=== PATIENT | female | born 1990 | race Caucasian/White ===

== ENCOUNTER 2021-04-02 14:31 | Inpatient (IN) | payer MEDICAID, SELFPAY ==
[2021-04-02 14:32] VITALS: BP 108/75; PULSE 74; RESP 16; TEMP 36.7; O2SAT 97; BMI 28.5
--- NOTE | 2021-04-02 15:46 | EDS_ITS ---
HPI History of Present Illness Chief Complaint: Substance Abuse Informant: patient Onset/Context/Timing Current Severity: Mild Maximum Severity: Moderate Narrative Narrative: Patient presents requesting detox from heroin. She has been using for the last year, but states she was clean for 4 months this summer. She uses the drug by snorting. Last use was 8 AM this morning. Patient states that she has body aches, sweats, and anxiety. PFSH PFSH Medical History no medical history no medical history Allergy/AdvReac Type Severity Reaction Status Date / Time tramadol Allergy Hives Verified 04/02/21 14:35 Social History (Updated 04/02/21 @ 15:[address] Cayla Juárez MD) Smoking Status: Current every day smoker tobacco type: cigarettes substance use type: heroin ROS ROS ED Constitutional Constitutional ED: Reports sweats; Denies chills or fever(s) Eyes Eyes: Denies change in vision ENT ENT ED: Denies sore throat Cardiovascular Cardiovascular: Denies chest pain Respiratory/Chest Respiratory/Chest: Denies cough or dyspnea Gastrointestinal Gastrointestinal: Reports nausea; Denies abdominal pain, diarrhea or vomiting Genitourinary Genitourinary ED: Denies dysuria Musculoskeletal Musculoskeletal: Reports myalgias; Denies back pain Integumentary Denies rash Neurologic Neurologic: Denies headache(s) or weakness Psychiatric Psychiatric: Reports anxiety; Denies depression Allergic/Immunologic Allergic/Immunologic ED: Denies urticaria EXAM Physical Exam Const Vital Signs: 04/02/21 14:32 Temperature 98.1 F Temperature Source Temporal Pulse Rate 74 Respiratory Rate 16 Blood Pressure 108/75 Blood Pressure Mean 86 Pulse Ox 97 Oxygen Delivery Method Room Air Positive well nourished and well developed General Appearance ED: well developed HEENT Reports normocephalic and head/scalp atraumatic Eyes PERRL and EOMs intact bilaterally Neck supple Chest Wall inspection of chest normal and palpation of chest normal Resp normal respiratory effort and clear to auscultation bilaterally Cardio regular rate and regular rhythm GI normal to inspection, nondistended, normoactive bowel sounds Palpation: soft Extremity normal to inspection Neuro oriented x3 and no sensory deficits noted Sensorium / Orientation: alert Motor Exam: strength 5/5 throughout Psych mental status grossly normal Skin no rashes or lesions noted Lesions: no lesions Rashes: no rashes MDM MDM MDM Narrative Medical decision making narrative: ED addiction medicine labs ordered. Patient reviewed the treatment agreement for the detox program and has signed this document. Lab Data Attestation: I reviewed the patient's lab results. Labs: Laboratory Results - last 24 hr 04/02/21 04/02/21 04/02/21 15:53 15:55 15:55 WBC 15.1 H RBC 4.31 Hgb 13.3 Hct 39.6 MCV 91.9 MCH 30.9 MCHC 33.6 RDW Std Deviation 39.3 RDW Coeff of Stew 11.5 L Plt Count 281 MPV 10.7 Immature Gran % (Auto) 0.300 Neut % (Auto) 65.6 Lymph % (Auto) 27.3 [place] % (Auto) 5.0 Eos % (Auto) 1.5 Baso % (Auto) 0.3 Absolute Neuts (auto) 9.9 H Absolute Lymphs (auto) 4.12 Nucleated RBC % 0 Sodium 140 Potassium 3.4 L Chloride 107 Carbon Dioxide 25.0 Anion Gap 8 BUN 10 Creatinine 0.99 Estim Creat Clear Calc 69.36 Est GFR (MDRD) Af Amer 84 Est GFR (MDRD) Non-Af 70 BUN/Creatinine Ratio 10.1 Glucose 110 H Calcium 9.1 Total Bilirubin 1.10 H AST 14 L ALT 17 Alkaline Phosphatase 84 Total Protein 7.7 Albumin 3.9 Globulin 3.8 Albumin/Globulin Ratio 1.0 Serum , Qual Urine Opiates Screen POSITIVE H Urine Methadone Screen NEGATIVE Ur Barbiturates Screen NEGATIVE Ur Phencyclidine Scrn NEGATIVE Ur Amphetamines Screen NEGATIVE U Methamphetamin-MDMA POSITIVE H U Benzodiazepines Scrn NEGATIVE Urine Cocaine Screen NEGATIVE U Cannabinoids Screen POSITIVE H Ur Drug Screen Comment Ethyl Alcohol 04/02/21 04/02/21 15:55 15:55 WBC RBC Hgb Hct MCV MCH MCHC RDW Std Deviation RDW Coeff of Stew Plt Count MPV Immature Gran % (Auto) Neut % (Auto) Lymph % (Auto) [place] % (Auto) Eos % (Auto) Baso % (Auto) Absolute Neuts (auto) Absolute Lymphs (auto) Nucleated RBC % Sodium Potassium Chloride Carbon Dioxide Anion Gap BUN Creatinine Estim Creat Clear Calc Est GFR (MDRD) Af Amer Est GFR (MDRD) Non-Af BUN/Creatinine Ratio Glucose Calcium Total Bilirubin AST ALT Alkaline Phosphatase Total Protein Albumin Globulin Albumin/Globulin Ratio Serum , Qual NEGATIVE Urine Opiates Screen Urine Methadone Screen Ur Barbiturates Screen Ur Phencyclidine Scrn Ur Amphetamines Screen U Methamphetamin-MDMA U Benzodiazepines Scrn Urine Cocaine Screen U Cannabinoids Screen Ur Drug Screen Comment Ethyl Alcohol < 3.0 Treatment and Re-Evaluation Comments:: On repeat evaluation patient resting comfortably. She is wanting to smoke a cigarette. We advised we will get her a nicotine patch. Test results reviewed with her including her tox screen. Tox screen is positive for opiates, methamphetamine, and cannabinoids. She admits to buying some CBD oil at a local store, but did not know that she had been exposed to any methamphetamine. I will speak with the hospitalist regarding admission. Discharge Plan Triage Chief Complaint: Substance Abuse ED Provider: Cayla Juárez Dx/Rx/DC Orders Clinical Impression: Desire for detoxification Primary Care Provider: Care Physician,No Primary Referrals: Care Physician,No Primary [Primary Care Provider] - Disposition Disposition: Acute Care [facility]
[2021-04-02 16:05] LABS: Absolute Lymphocyte Count 4.12 X10^3/uL (0.83-4.51); Absolute Neutrophil Count 9.9 X10^3/uL (2.0-7.7); Basophil# 0.05 X10^3/uL; Basophil% 0.3 % (0-1); Eosinophil# 0.22 X10^3/uL; Eosinophils% 1.5 % (0-5); Hematocrit 39.6 % (37-47); Hemoglobin 13.3 g/dL (12.0-15.0); Lymphocyte # 4.12 X10^3/ul (0.83-4.51); Lymphocyte % 27.3 % (19-41); Mean Corp Hgb Conc 33.6 g/dL (32-36); Mean Corpuscular Hgb 30.9 pg (27.0-32.0); Mean Corpuscular Volume 91.9 fL (81-99); Mean Platelet Vol. 10.7 fl (6.2-12.0); Monocyte# 0.75 X10^3/uL; NRBC Flagged by Analyzer 0 % (0-5); Neutrophil # 9.91 X10^3/uL (2.7-7.7); Neutrophil % 65.6 % (47-70); Platelet Count 281 K/mm3 (150-450); RBC Distribution Width CV 11.5 % (11.6-14.6); RBC Distribution Width SD 39.3 fl (35.1-43.9); Red Blood Count 4.31 M/mm3 (4.2-5.4); White Blood Count 15.1 K/mm3 (4.4-11.0)
[2021-04-02 16:19] LABS: Internal QC Validated? YES +Cl - CLEAR BKGD; Pregnancy, Serum, hCG Quali. NEGATIVE Negative
[2021-04-02 16:23] LABS: Amphetamine Urine VISTA NEGATIVE (<1000 ng/mL); Barbiturate Urine VISTA NEGATIVE (< 200 ng/mL); Benzodiazepine Urine VISTA NEGATIVE (< 200 ng/mL); Cocaine Urine VISTA NEGATIVE (< 300 ng/mL); Ecstacy Urine VISTA POSITIVE (< 500 ng/mL); Methadone Urine VISTA NEGATIVE (< 300 ng/mL); PCP Urine VISTA NEGATIVE (< 25 ng/mL); THC Urine VISTA POSITIVE (< 50 ng/mL); Vista UDS pH Range 5
[2021-04-02 16:24] LABS: AST(SGOT) 14 U/L (15-37); Alanine Aminotransfer ALT/SGPT 17 U/L (13-56); Albumin, Serum 3.9 g/dL (3.2-5.0); Alkaline Phosphatase 84 U/L (45-117); Anion Gap 8 (5-15); BUN 10 mg/dL (7-18); BUN/Creat Ratio 10.1 RATIO (10-20); Calcium,Total 9.1 mg/dL (8.5-10.1); Chloride 107 mmol/L (98-107); Creatinine, Serum 0.99 mg/dL (0.55-1.02); EST Glomerular Filtration Rate 70 mL/min (>60); Est Glom Filt Rate - Afr Amer 84 mL/min (>60); Estimated Creatinine Clearance 69.36 ml/min; Globulin 3.8 g/dL (2.2-4.2); Glucose 110 mg/dL (74-106); Potassium 3.4 mmol/L (3.5-5.1); Protein, Total 7.7 g/dL (6.4-8.2); Sodium Level 140 mmol/L (136-145)
[2021-04-02 16:39] LABS: Alcohol, Blood (Medical)-Serum < 3.0 mg/dL
[2021-04-02 17:00] VITALS: RESP 16
[2021-04-02 17:09] VITALS: BP 108/75; PULSE 66; RESP 18; TEMP 36.8; O2SAT 97
--- NOTE | 2021-04-02 17:15 | CM.ED ---
SOCIAL WORK Referral Source: Self-referral Reason for Consult: Substance Abuse-requesting detox Met with patient in room. Introduced role and reason for referral. Patient reports lives with twila in [place]. Patient anxious when discussing detox with this worker. Patient reports, I thought we were just using heroin, I didn't know there was other stuff in it. Patient states has been using for about a year with times of sobriety. Patient reports has been actively using heroin for about a month. Triage note reports last use was 8am this morning, patient reporting last use was yesterday sometime. Patient wishes to complete detox and is hoping to get my kids back. Encouragement and emotional support provided. Patient states twila is an addict and is active with outpatient services. Call to Treatment Navigator, left message updating on [facility] admit and this worker's call back information. Plan: Admit to [facility] Criselda Oates, SIDE DOOR MAN, ACQUISITION EDITOR
--- NOTE | 2021-04-02 17:19 | HP.PCM_ITS ---
Documented by User: JEFF LozanoC 04/02/21 17:34 HPI - General General Date of Admission: 04/02/21 Date of Service: 04/02/21 Chief Complaint: Substance abuse HPI Narrative CASSANDRA COWAN, is a 30 F who presents with desire to detox from heroin. Patient is very freaked out at the realization that the heroin that she has been doing has been mixed with methamphetamines. Patient states that she is o nly ever done heroin and has never done methamphetamines in her life to her knowledge. Patient states that she has done opioid pills in the past however this is the extent of her drug use. Patient states that her boyfriend also uses drugs and he is currently trying to quit on his own so that he can work while she is in the hospital. Patient denies any medical history. Patient reports concurrent tobacco abuse [facility] Medical History (Updated 04/02/21 @ 18:34 by Jenn Clarke) Anxiety Bipolar disorder Depression Migraines Ovarian cyst Smoker Substance abuse Vaginal delivery Medical History no medical history no medical history Home Medications buprenorphine-naloxone 8 film SUBLINGUAL BID 04/02/21 [History Last Taken 03/03/21] buspirone [BuSpar] 5 mg PO BID 04/02/21 [History Last Taken 03/03/21] gabapentin 800 mg PO TID 04/02/21 [History Last Taken 03/03/21] Allergy/AdvReac Type Severity Reaction Status Date / Time tramadol Allergy Hives Verified 04/02/21 14:35 Surgical History no surgical history no surgical history Social History (Updated 04/02/21 @ 15:[address] Cayla Juárez MD) Smoking Status: Current every day smoker tobacco type: cigarettes substance use type: heroin ROS Constitutional Constitutional: Denies anorexia, chills, fatigue, fever(s), malaise or weakness Cardiovascular Cardiovascular: Denies chest pain, edema, palpitations or syncope Respiratory/Chest Respiratory/Chest: Denies cough, shortness of breath at rest, shortness of breath with exertion or wheezing Gastrointestinal Gastrointestinal: Reports diarrhea and nausea; Denies abdominal pain, constipation or vomiting Genitourinary Genitourinary: Denies dysuria Musculoskeletal Musculoskeletal: Denies back pain, extremity pain, joint pain, joint stiffness or joint swelling Integumentary Integumentary: Denies dry skin Neurologic Neurologic: Denies abnormal gait, abnormal speech, confusion, dizziness or focal weakness Psychiatric Psychiatric: Denies anxiety or depression Endocrine Endocrinology: Denies change in body appearance Hematologic/Lymphatic Hematologic/Lymphatic: Denies anemia Vital Signs Vital Signs Vital Signs: 04/02/21 14:32 04/02/21 17:00 04/02/21 17:09 Temperature 98.1 F 98.3 F Temperature Source Temporal Oral Pulse Rate 74 66 Respiratory Rate 16 16 18 Blood Pressure 108/75 108/75 Blood Pressure Mean 86 86 Pulse Ox 97 97 Oxygen Delivery Method Room Air Room Air Weight Weight: 161 lb Body Mass Index (BMI) 28.5 Physical Exam Const alert and oriented x3 General Appearance: cooperative HEENT normocephalic and head/scalp atraumatic Eyes conjunctivae normal and no scleral icterus Neck supple and no JVD General: trachea midline Resp normal respiratory effort, normal air movement and clear to auscultation bilaterally Cardio regular rate, regular rhythm, S1 normal heart sound, S2 normal heart sound and peripheral pulses 2+ throughout GI normal to inspection, nondistended, normoactive bowel sounds, soft to palpation and non-tender Extremity normal capillary refill and no clubbing, cyanosis or edema General Extremity: no tenderness to palpation of joints or extremities Skin General Skin Exam: no breakdown and turgor normal Lesions: no lesions Rashes: no rashes Neuro oriented x3, moves all extremities, no focal motor deficits, no sensory deficits noted and gait normal Psych cooperative Speech: excessive and rapid Thought Process: flight of ideas and racing thoughts Results Lab / Micro Data Result Diagrams: 04/02/21 15:55 04/02/21 15:55 Labs: Laboratory Results - last 24 hr 04/02/21 15:53: Urine Opiates Screen POSITIVE H, Urine Methadone Screen NEGATIVE, Ur Barbiturates Screen NEGATIVE, Ur Phencyclidine Scrn NEGATIVE, Ur Amphetamines Screen NEGATIVE, U Methamphetamin-MDMA POSITIVE H, U Benzodiazepines Scrn NEGATIVE, Urine Cocaine Screen NEGATIVE, U Cannabinoids Screen POSITIVE H, Ur Drug Screen Comment 04/02/21 15:55: WBC 15.1 H, RBC 4.31, Hgb 13.3, Hct 39.6, MCV 91.9, MCH 30.9, MCHC 33.6, RDW Std Deviation 39.3, RDW Coeff of Stew 11.5 L, Plt Count 281, MPV 10.7, Immature Gran % (Auto) 0.300, Neut % (Auto) 65.6, Lymph % (Auto) 27.3, [place] % (Auto) 5.0, Eos % (Auto) 1.5, Baso % (Auto) 0.3, Absolute Neuts (auto) 9.9 H, Absolute Lymphs (auto) 4.12, Nucleated RBC % 0 04/02/21 15:55: Sodium 140, Potassium 3.4 L, Chloride 107, Carbon Dioxide 25.0, Anion Gap 8, BUN 10, Creatinine 0.99, Estim Creat Clear Calc 69.36, Est GFR (MDRD) Af Amer 84, Est GFR (MDRD) Non-Af 70, BUN/Creatinine Ratio 10.1, Glucose 110 H, Calcium 9.1, Total Bilirubin 1.10 H, AST 14 L, ALT 17, Alkaline Phosphatase 84, Total Protein 7.7, Albumin 3.9, Globulin 3.8, Albumin/Globulin Ratio 1.0 04/02/21 15:55: Ethyl Alcohol < 3.0 04/02/21 15:55: Serum , Qual NEGATIVE Assessment & Plan Assessment/Plan (1) Desire for detoxification: PLAN: 1. Desire for detoxification -Admit to [facility] as part of the ramp program -Buprenorphine taper ordered along with supportive medications per protocol -Case management consulted for coordination with 180 -Vital signs per protocol 2. Tobacco abuse -nicotine patch order daily -Inpatient smoking cessation DVT prophylaxis-not indicated, encourage ambulation This patient was seen by LLOYD Lozano under the supervision of Dr. Jimenez Documented by User: Dr. Dc Jimenez DO 04/02/21 20:01 HPI - General General Date of Admission: 04/02/21 [facility] Medical History (Updated 04/02/21 @ 18:34 by eJnn Clarke) Anxiety Bipolar disorder Depression Migraines Ovarian cyst Smoker Substance abuse Vaginal delivery Medical History no medical history Home Medications buprenorphine-naloxone 8 film SUBLINGUAL BID 04/02/21 [History Last Taken 03/03/21] buspirone [BuSpar] 5 mg PO BID 04/02/21 [History Last Taken 03/03/21] gabapentin 800 mg PO TID 04/02/21 [History Last Taken 03/03/21] Allergy/AdvReac Type Severity Reaction Status Date / Time tramadol Allergy Hives Verified 04/02/21 14:35 Surgical History no surgical history Social History (Updated 04/02/21 @ 15:[address] Cayla Juárez MD) Smoking Status: Current every day smoker tobacco type: cigarettes substance use type: heroin Results Lab / Micro Data Result Diagrams: 04/02/21 15:55 04/02/21 15:55 Charges/Coding Addendum Addendum: Patient was seen and examined today independently of Vonnie De, patient came to the ER today at [facility] requesting services for detox from heroin which she snorts. Patient denies using methamphetamines although her tox screen was positive for them-I believe that her heroin was laced with methamphetamine. Patient is anxious at the time my exam tonight, nursing will start her on Subutex tonight. On examination she appeared anxious and crying at the time my exam. Vital signs as documented. Skin warm and dry and without overt rashes. Neck without JVD, thyroid appears normal, trachea is midline, neck is supple. Lungs clear, normal air movement was noted. Heart exam notable for regular rhythm, normal sounds and absence of murmurs, rubs or gallops. Abdomen unremarkable and without evidence of organomegaly, masses, or abdominal aortic enlargement, bowel sounds are present in all 4 quadrants, no abdominal tenderness was noted. Extremities nonedematous, no cyanosis was noted, no clubbing was noted. Neuro: Cranial nerves II through XII are grossly intact, no focal motor deficits were noted, sensation to light touch and pinprick is intact, motor exam 5/5 throughout. Psych: Patient is alert and oriented x3, she appears anxious, she does not appear depressed I have reviewed Vonnie De's history and physical including her medical assessment and plan of care and endorse it. Visit Charges Inpatient E&M: 48717 Init Hosp L3
[2021-04-02 18:23] VITALS: BMI 28.8
[2021-04-02 18:30] VITALS: BP 112/69; PULSE 50; RESP 16; TEMP 36.8; O2SAT 100
[2021-04-02] MEDS: Gabapentin 300 MG Capsule PO (18:51)
[2021-04-02] MEDS: hydrOXYzine PAM 25 MG Capsule 50 MG PO (20:01)
[2021-04-02] MEDS: cloNIDine HCl 0.1 MG Tablet PO (20:01)
[2021-04-02] MEDS: Buprenorphine HCl 2 MG TAB.SUBL SL (20:49)
[2021-04-02 21:00] VITALS: BP 108/69; PULSE 60; RESP 16; TEMP 37.1; O2SAT 100
[2021-04-02] MEDS: Nicotine Polacrilex 2 MG GUM PO (21:21)
[2021-04-03 03:00] VITALS: BP 98/56; PULSE 68; RESP 16; TEMP 36.8; O2SAT 99
[2021-04-03] MEDS: Buprenorphine HCl 2 MG TAB.SUBL SL ×3 (05:29→21:02)
[2021-04-03] MEDS: Dicyclomine 10 MG Capsule 20 MG PO ×3 (05:30→21:09)
[2021-04-03] MEDS: Ondansetron 8 MG Tablet PO (07:55)
[2021-04-03 07:59] VITALS: BP 106/59; PULSE 62; RESP 12; TEMP 36.6; O2SAT 99
[2021-04-03] MEDS: Ibuprofen 600 MG Tablet PO (08:03)
[2021-04-03] MEDS: Methocarbamol 750 MG Tablet 1500 MG PO ×3 (08:04→21:10)
[2021-04-03] MEDS: cloNIDine HCl 0.1 MG Tablet PO ×2 (08:04→18:01)
[2021-04-03] MEDS: Gabapentin 300 MG Capsule PO ×2 (09:38→18:01)
[2021-04-03] MEDS: hydrOXYzine PAM 25 MG Capsule 50 MG PO ×2 (12:18→18:01)
[2021-04-03 12:20] VITALS: BP 100/61; PULSE 66; RESP 14; TEMP 37.2; O2SAT 99
--- NOTE | 2021-04-03 12:59 | CASEMGMT ---
SW Note Referral Source: SW Referral Reason: Self Pay SW met with patient and introduced self. SW provided patient with self pay packet. Patient voiced no other issues or concerns. SW remains available. SW will update in daily report. Alyssa LEE
[2021-04-03 17:56] VITALS: BP 117/74; PULSE 74; RESP 16; TEMP 36.8; O2SAT 99
[2021-04-03] MEDS: Nicotine Polacrilex 2 MG GUM PO (17:57)
--- NOTE | 2021-04-03 19:15 | PCM.PN.HOSP ---
Subjective Subjective Patient was seen and examined today, it [birth year] birthday and she cannot talk to family members by phone today which upset her. I had a discussion with the patient today on whether she had a history of a psychiatric illness-patient stated that she was given a diagnosis of bipolar disorder in the past but is not on any medicine for it. Patient states she used to be on medication for this but she cannot tell me the medication that she was on. Objective Data Objective Data Vital Signs: Vital Signs Temp Pulse Resp BP Pulse Ox 98.3 F 74 16 117/74 99 04/03/21 17:56 04/03/21 17:56 04/03/21 17:56 04/03/21 17:56 04/03/21 17:56 Oxygen Delivery Method Room Air Weight: 73.799 kg Body Mass Index (BMI) 28.8 Intake & Output: Intake and Output for Last 24 Hours 04/01/21 04/02/21 04/03/21 23:59 23:59 23:59 Intake Total 1949 Balance 1949 Lab / Micro Data Result Diagrams: 04/02/21 15:55 04/02/21 15:55 Physical Exam Const alert and oriented x3 Constitutional Narrative: Patient appears anxious and upset at times, crying General Appearance: cooperative, well kempt and well developed Orientation / Consciousness: awake, oriented to person, oriented to place and oriented to time HEENT normocephalic, head/scalp atraumatic and moist oral mucous membranes Head and Scalp: normocephalic Eyes PERRL, EOMs intact bilaterally and conjunctivae normal Neck nuchal rigidity, supple, no JVD, thyroid normal and no carotid bruits General: trachea midline Resp normal respiratory effort, no retractions, no use of accessory muscles and clear to auscultation bilaterally Auscultation: Negative for rales, rhonchi or wheezes Cardio regular rate, regular rhythm, S1 normal heart sound, S2 normal heart sound, no murmurs, no rub and no gallops GI normal to inspection, nondistended, normoactive bowel sounds, soft to palpation, non-tender and non-distended Extremity no clubbing, cyanosis or edema Skin no rashes or lesions noted General Skin Exam: no breakdown Neuro oriented x3, CN's II-XII intact bilaterally, no focal motor deficits and no sensory deficits noted Sensorium / Orientation: awake and alert Speech: speech normal Psych thought process normal Psych Narrative: Patient appears nervous and upset, at times she is crying Assessment & Plan Assessment/Plan (1) Desire for detoxification: PLAN: 1. Acute opiate withdrawal from heroin-continue present medications #2 bipolar disorder-I have decided to start the patient on Depakote 500 mg twice daily #3 chronic anxiety Charges/Coding Visit Charges Inpatient E&M: 59507 Subs Hosp L2
[2021-04-03] MEDS: traZODone 100 MG Tablet PO (21:09)
[2021-04-04] VITALS: BP 101/57; PULSE 66; RESP 16; TEMP 36.6; O2SAT 98
[2021-04-04] MEDS: hydrOXYzine PAM 25 MG Capsule 50 MG PO ×2 (00:08→10:58)
--- NOTE | 2021-04-04 00:45 | PCS.PANDOC ---
PANDEMIC DOCUMENTATION INITIATED: Date: 01/18/2021 Time: 190
[2021-04-04] MEDS: Gabapentin 300 MG Capsule PO ×2 (04:19→12:35)
[2021-04-04] MEDS: Ondansetron 8 MG Tablet PO (04:19)
[2021-04-04] MEDS: Buprenorphine HCl 2 MG TAB.SUBL SL ×3 (04:19→20:38)
[2021-04-04 06:00] VITALS: BP 92/58; PULSE 59; RESP 16; TEMP 37; O2SAT 99
[2021-04-04] MEDS: Divalproex Sodium 250 MG Tablet 500 MG PO ×2 (07:37→17:57)
[2021-04-04 07:41] VITALS: BP 95/53; PULSE 58; RESP 18; TEMP 36.8; O2SAT 98
[2021-04-04] MEDS: Nicotine Polacrilex 2 MG GUM PO ×3 (10:51→17:57)
[2021-04-04] MEDS: Methocarbamol 750 MG Tablet 1500 MG PO (10:58)
[2021-04-04] MEDS: busPIRone 15 MG TABLET PO ×2 (14:29→22:56)
[2021-04-04 14:31] VITALS: BP 98/59; PULSE 65; RESP 18; TEMP 36.9; O2SAT 98
--- NOTE | 2021-04-04 14:42 | PN.HOSP_ITS ---
Subjective Subjective Patient was seen and examined today, she was meeting with the gas systems worker. Patient continues to have periods of anxiety and nervousness. I started the patient on BuSpar today Objective Data Objective Data Vital Signs: Vital Signs Temp Pulse Resp BP Pulse Ox 98.5 F 65 18 98/59 L 98 04/04/21 14:31 04/04/21 14:31 04/04/21 14:31 04/04/21 14:31 04/04/21 14:31 Oxygen Delivery Method Room Air Weight: 73.799 kg Body Mass Index (BMI) 28.8 Intake & Output: Intake and Output for Last 24 Hours 04/02/21 04/03/21 04/04/21 23:59 23:59 23:59 Intake Total 1949 Balance 1949 Lab / Micro Data Result Diagrams: 04/02/21 15:55 04/02/21 15:55 Physical Exam Const alert, oriented x3, no apparent distress and healthy appearing General Appearance: cooperative, well kempt and well developed Orientation / Consciousness: awake, oriented to person, oriented to place and o riented to time HEENT normocephalic, head/scalp atraumatic and moist oral mucous membranes Head and Scalp: normocephalic Eyes PERRL, EOMs intact bilaterally and conjunctivae normal Neck nuchal rigidity, supple, no JVD, thyroid normal and no carotid bruits General: trachea midline Resp normal respiratory effort, no retractions, no use of accessory muscles and clear to auscultation bilaterally Auscultation: Negative for rales, rhonchi or wheezes Cardio regular rate, regular rhythm, S1 normal heart sound, S2 normal heart sound, no murmurs, no rub and no gallops GI normal to inspection, nondistended, normoactive bowel sounds, soft to palpation, non-tender and non-distended Extremity no clubbing, cyanosis or edema Skin no rashes or lesions noted General Skin Exam: no breakdown Neuro oriented x3, CN's II-XII intact bilaterally, no focal motor deficits and no sensory deficits noted Sensorium / Orientation: awake and alert Speech: speech normal Psych thought process normal Psych Narrative: Patient does not appear nervous or anxious at the time of my examination today Assessment & Plan Assessment/Plan (1) Desire for detoxification: PLAN: 1. Acute opiate withdrawal from heroin-continue present medications, she met with addiction social science analyst today. #2 bipolar disorder-continue Depakote 500 mg twice daily #3 chronic anxiety-I decided to place the patient on BuSpar 15 mg 3 times a day Charges/Coding Visit Charges Inpatient E&M: 14499 Subs Hosp L2
[2021-04-04 22:00] VITALS: BP 103/67; PULSE 74; RESP 16; TEMP 37.5; O2SAT 100
[2021-04-04] MEDS: traZODone 100 MG Tablet PO (22:57)
[2021-04-05 03:58] LABS: Mucous, Urine 0 SEEN /hpf (<or=2+); Red Blood Cells-Urine 0 SEEN /hpf (0-5); White Blood Cells 0 SEEN /hpf (0-5)
[2021-04-05 04:01] LABS: Color, Urine Yellow (Yellow); Glucose, Dipstick Normal (Normal); Ketone-Dipstick Negative (Negative); Leukocyte Esterase-Dipstick Negative /ul (Negative); Nitrite-Dipstick Negative (Negative); Occult Blood-Urine Negative /ul (Negative); Protein-Dipstick Negative (Negative); Specific Gravity, Urine 1.005 (1.002-1.030); Urine Bilirubin Dipstick Negative (Negative); Urine Clarity Clear (Clear); Urine Urobilinogen Normal (Normal); Urine pH 6.5 (5.0 - 8.0)
[2021-04-05 04:30] VITALS: BP 93/57; PULSE 66; RESP 16; TEMP 37.1; O2SAT 100
--- NOTE | 2021-04-05 05:03 | EKG12_ITS ---
Test Reason : IRREG HR Blood Pressure : / mmHG Vent. Rate : 052 BPM Atrial Rate : 052 BPM P-R Int : 214 ms QRS Dur : 102 ms QT Int : 462 ms P-R-T Axes : 066 061 056 degrees QTc Int : 429 ms Sinus bradycardia with sinus arrhythmia with 1st degree A-V block Otherwise normal ECG No previous ECGs available Confirmed by RUDDY PATEL, SINGH ([id number]), mapping editor IBRAHIMA PUENTE ([id number]) on 04/06/2021 12:29:23 P M Referred By: DR SCHWAB Confirmed By:LUCAS FOX MD
[2021-04-05] MEDS: busPIRone 15 MG TABLET PO (05:06)
[2021-04-05 06:45] LABS: Bacteria 1+ /hpf (None Seen); Squamous Epithelial Cells - UA 0-5 SEEN /hpf (5-10)
[2021-04-05 08:00] VITALS: BP 100/45; PULSE 99; RESP 14; TEMP 36.6; O2SAT 98
[2021-04-05] MEDS: Divalproex Sodium 250 MG Tablet 500 MG PO (08:06)
[2021-04-05] MEDS: Buprenorphine HCl 2 MG TAB.SUBL SL (08:09)
[2021-04-05] MEDS: hydrOXYzine PAM 25 MG Capsule 50 MG PO (09:38)
[2021-04-05] MEDS: Nicotine Polacrilex 2 MG GUM PO (09:39)
--- NOTE | 2021-04-05 09:49 | PCM.DC ---
Discharge Instructions Diet Discharge Diet: No restrictions Activity Discharge Activity: Return to Normal Activity Weight Bearing Status: Weight bearing as tolerated Dressing / Incision Call your doctor if you observe: Fever of 101 or Higher, Coldness, Increased Pain, Numbness or Tingling, Change in Color, Inability to urinate, Inability to have a bowel movement, Using more than 1 pad per hour, Shortness of breath, Dizziness, Fainting spells, Swelling in the ankles, Chest pain, Prolonged hiccupping, Increased palpitations (irregular heartbeat), Calf discomfort and Uncontrolled pain Follow Up Care Test Results: Test results from this visit will be discussed in further detail at your follow-up appointment, if applicable. Discharge Plan Admission Admit Date/Time: 04/02/21 17:09 Primary Reason for Your Visit: Acute opiate withdrawal syndrome Attending Provider: Matias Whalen Primary Care Provider: Ciara Araujo Primary Instructions Additional Instructions / Restrictions: She is being discharged today to residential [facility] Discharge Orders/Prescriptions Prescriptions: Continued buspirone 5 mg Tablet 5 mg PO BID RF: 0 gabapentin 800 mg tablet 800 mg PO TID RF: 0 buprenorphine-naloxone 8-2 mg film 8 film sublingual BID RF: 0 Referrals / Follow Up: Care Physician,No Primary [Primary Care Provider] - Within 1 Week Disposition Disposition (needs filled in before D/C Order can be placed): Home, Self Care
--- NOTE | 2021-04-05 09:52 | PCM.DC.SUM ---
Providers Date of Admission: 04/02/21 Primary Care Physician: No Primary Care Phys Reason For Visit: DETOX Diagnosis Discharge Diagnosis (1) Desire for detoxification: Status: Acute Medications at Discharge Home Medications buprenorphine-naloxone 8 film SUBLINGUAL BID 04/02/21 buspirone 5 mg PO BID 04/02/21 gabapentin 800 mg PO TID 04/02/21 Hospital Course Summary of Care Provided Hospital Course: This 31-year-old female is admitted with heroin/opioid acute withdrawal syndrome. Patient states she snorts heroin. After talking to 180 adult protective caseworker, I came to know that she has history of suicidal attempt in the past with history of bipolar disease. She was on buprenorphine along with other adjunctive medication as per protocol. She is also on high dose of BuSpar 15 mg 3 times daily. Patient is discharged to inpatient [facility] facility for further management. Physical Exam Narrative General: Alert, Oriented x3, Cooperative HEENT: Atraumatic, PERRLA, EOMI, Normocephalic Oral: No Gingival or Mucosal Lesions/ Ulcerations Neck: Supple, No JVD, Negative Carotid Bruits Lungs: Air entry equal in bilateral lung bases. No crepitation/rhonchi Cardiovascular: Regular rate, Regular Rhythm, Normal S1, Normal S2, No murmurs Abdomen: Bowel Sounds Present, Soft, Non Tender, Non-Distended : No renal angle tenderness. No suprapubic tenderness. Extremities: No edema, Capillary Refill Less than 3 Seconds Skin: No rashes, No breakdown Musculoskeletal: No Tenderness to Palpation of Joints or Extremities Neurological: Cranial nerves II-XII grossly intact, DTR 2+/4 and Symmetrical, Neuro grossly intact Psych/Mental Status: Normal Affect, Appropriate. Weight / BMI Weight Weight: 162 lb 11.2 oz Body Mass Index (BMI) 28.8 ABG / Lab / Microbiology Data Result Diagrams: 04/02/21 15:55 04/02/21 15:55 Laboratory: Laboratory Results - last 24 hr 04/05/21 00:37: Urine Color Yellow, Urine Clarity Clear, Urine pH 6.5, Ur Specific [place] 1.005, Urine Protein Negative, Urine Glucose (UA) Normal, Urine Ketones Negative, Urine Occult Blood Negative, Urine Nitrite Negative, Urine Bilirubin Negative, Urine Urobilinogen Normal, Ur Leukocyte Esterase Negative, Urine RBC 0 SEEN, Urine WBC 0 SEEN, Ur Squamous Epith Cells 0-5 SEEN, Urine Bacteria 1+, Urine Mucus 0 SEEN D/C Instructions Discharge Diet: No restrictions Weight Bearing Status: Weight bearing as tolerated Call your doctor if you observe: Fever of 101 or Higher, Coldness, Increased Pain, Numbness or Tingling, Change in Color, Inability to urinate, Inability to have a bowel movement, Using more than 1 pad per hour, Shortness of breath, Dizziness, Fainting spells, Swelling in the ankles, Chest pain, Prolonged hiccupping, Increased palpitations (irregular heartbeat), Calf discomfort and Uncontrolled pain Meaningful Use Info Meaningful Use Diagnoses (Choose all that apply): None applicable Discharge Plan Admission Admit Date/Time: 04/02/21 17:09 Primary Reason for Your Visit: Acute opiate withdrawal syndrome Attending Provider: Matias Whalen Primary Care Provider: Chiquita Roach,Ciara Primary Instructions Additional Instructions / Restrictions: She is being discharged today to residential [facility] Discharge Orders/Prescriptions Prescriptions: Continued buspirone 5 mg Tablet 5 mg PO BID RF: 0 gabapentin 800 mg tablet 800 mg PO TID RF: 0 buprenorphine-naloxone 8-2 mg film 8 film sublingual BID RF: 0 Referrals / Follow Up: Care Physician,No Primary [Primary Care Provider] - Within 1 Week Disposition Disposition (needs filled in before D/C Order can be placed): Home, Self Care Charges/Coding Visit Charges Inpatient E&M: 82168 Disch Hosp
--- NOTE | 2021-04-05 10:49 | PHA.DC.MR ---
Pharmacy Service has performed discharge medication reconciliation for this patient. The patient's discharge medication list was reviewed for discrepancies and discrepancies were resolved. Home Medications buprenorphine-naloxone 8 film SUBLINGUAL BID 04/02/21 buspirone 5 mg PO BID 04/02/21 gabapentin 800 mg PO TID 04/02/21
== END 2021-04-05 11:19 | disposition home or self-care (01) | DRG 897 ==
LOC: ED 16:47 → MS3 17:13
PROVIDERS: Hospitalist; Admitting Provider Internal Medicine; Emergency Provider Emergency Medicine; Visit Provider Internal Medicine
DX: F11.93 Opioid use, unspecified with withdrawal (principal); F12.90 Cannabis use, unspecified, uncomplicated; F15.90 Other stimulant use, unspecified, uncomplicated; F31.9 Bipolar disorder, unspecified; F41.9 Anxiety disorder, unspecified; Z91.51 Personal history of suicidal behavior; F17.210 Nicotine dependence, cigarettes, uncomplicated
CPT/HCPCS: 80053; 80307; 81001; 82077; 84703; 85025; 93005; 99285; 99406; A4216

== ENCOUNTER 2021-10-02 18:41 | Observation (INO) | payer MEDICAID, SELFPAY ==
[2021-10-02 18:41] VITALS: BP 120/76; PULSE 80; RESP 18; TEMP 36; O2SAT 99; BMI 32.2
--- NOTE | 2021-10-02 19:14 | EX.ED.DYSGE1 ---
HPI History of Present Illness Chief Complaint: Substance Abuse Informant: patient Narrative Narrative: 31-year-old female presenting to the emergency room requesting detox from heroin. Patient states that she is a daily snort or of heroin. Between her and her significant other use about a gram per day. She states that they used to make himself feel better physically. She states that she has no pending legal issues and she is not . Initially not wanting to stay if she cannot be with her significant other but once finding out that he is going to stay no matter what she agrees to stay. [facility] Medical History (Updated 10/02/21 @ 19:[address] Markus Riddle DO) Anxiety Bipolar disorder Depression Desire for detoxification Migraines Ovarian cyst Smoker Substance abuse Vaginal delivery Home Medications buprenorphine-naloxone 8 film SUBLINGUAL BID 04/02/21 [History Last Taken 03/03/21] buspirone 5 mg PO BID 04/02/21 [History Last Taken 03/03/21] gabapentin 800 mg PO TID 04/02/21 [History Last Taken 03/03/21] Allergy/AdvReac Type Severity Reaction Status Date / Time tramadol Allergy Hives Verified 04/02/21 14:35 Social History Smoking Status: Current every day smoker tobacco type: cigarettes substance use type: heroin ROS ROS ED Constitutional Constitutional ED: Denies chills, fever(s) or weight loss Eyes Eyes: Denies change in vision or diplopia ENT ENT ED: Denies ear pain, rhinorrhea or sore throat Cardiovascular Cardiovascular: Denies chest pain, orthopnea, palpitations or racing heartbeat Respiratory/Chest Respiratory/Chest: Denies cough, dyspnea or orthopnea Gastrointestinal Gastrointestinal: Denies abdominal pain, diarrhea, nausea or vomiting Genitourinary Genitourinary ED: Denies dysuria, hematuria or urinary frequency Musculoskeletal Musculoskeletal: Denies arthralgias or myalgias Integumentary Denies abscess or rash Neurologic Neurologic: Denies headache(s) or weakness Psychiatric Psychiatric: Denies anxiety, depression, suicidal ideation or suicidal thoughts Endocrine Endocrinology: Denies polydipsia, polyphagia or polyuria Allergic/Immunologic Allergic/Immunologic ED: Denies mouth swelling, tongue swelling or urticaria EXAM Physical Exam Const Vital Signs: 10/02/21 18:41 Temperature 96.8 F L Temperature Source Oral Pulse Rate 80 Respiratory Rate 18 Blood Pressure 120/76 Blood Pressure Mean 90 Pulse Ox 99 Oxygen Delivery Method Room Air Positive well nourished and well developed General Appearance ED: well developed HEENT Reports normocephalic, head/scalp atraumatic, TM's clear and moist mucous membranes Negative for trauma Tympanic Membrane ED: Yes TM's clear Eyes PERRL and EOMs intact bilaterally Neck no lymphadenopathy, supple and no JVD Resp normal respiratory effort and clear to auscultation bilaterally Cardio regular rate, regular rhythm and no murmurs GI normal to inspection, nondistended, normoactive bowel sounds and non-tender Palpation: soft Back/Spine no CVA tenderness and normal ROM Extremity normal to inspection General Extremety ED: Negative for edema General Extremity: Negative for edema Neuro oriented x3 and CN's II-XII intact bilaterally Sensorium / Orientation: alert Motor Exam: strength 5/5 throughout Psych mental status grossly normal Mood & Affect: Negative for depressed or tearful Skin no rashes or lesions noted and no wounds MDM MDM MDM Narrative Medical decision making narrative: Patient will be medically screened. If she is not and agreeable to the rules of the program I will speak with the hospitalist regarding admission Discharge Plan Dx/Rx/DC Orders Clinical Impression: Heroin withdrawal Disposition Disposition: Acute Care [facility]
--- NOTE | 2021-10-02 19:15 | HP.PCM.HOS_ITS ---
HPI - General General Date of Admission: 10/02/21 Date of Service: 10/02/21 Chief Complaint: Acute Opiate Withdrawal HPI Narrative The patient is a 31 y/o F w/ PMHx: Anxiety and Depression/Bipolar disorder, Chronic migraines, Tobacco use, Polysubstance abuse including heroin who presents to the [facility] ED on 10/02/21 with history of significant ongoing issues with substance abuse primarily heroin which she snorts daily, usually using 1 g with her significant other with whom she lives, noting both have attempted to be clean but unfortunately its been unsuccessful several times with last dose 9 AM on day of presentation with complaint of abdominal cramping, mild nausea, body aches, rhinorrhea and restlessness. Patient states she is interested in becoming clean. Initially she was very reticent to stay because it was mentioned that her and her significant would not be able to be on the same floors but following lengthy discussion she was amenable. She reports having 3 living children, 3 miscarriages. From discussions with her she does not have custody of any of her children the youngest aged 2 of note. Work-up in the ED included T96.8, heart rate 80, BP 120/76, respiratory rate 18, 99% on room air, pending CBC, CMP, , UDS and ethyl alcohol levels upon evaluation. [facility] Medical History (Updated 10/02/21 @ 19:[address] Markus Riddle, ) Anxiety Bipolar disorder Depression Desire for detoxification Migraines Ovarian cyst Smoker Substance abuse Vaginal delivery Home Medications buprenorphine-naloxone 8 film SUBLINGUAL BID 04/02/21 [History Last Taken 03/03/21] buspirone 5 mg PO BID 04/02/21 [History Last Taken 03/03/21] gabapentin 800 mg PO TID 04/02/21 [History Last Taken 03/03/21] Allergy/AdvReac Type Severity Reaction Status Date / Time tramadol Allergy Hives Verified 04/02/21 14:35 Family History (Updated 10/02/21 @ 19:[address] Marita Jordan MD) Mother Heart disease Diabetes Father Cancer Lung CA w/ history of tobacco use. Surgical History (Updated 10/02/21 @ 19:[address] Marita Jordan MD) H/O ovarian cystectomy Social History (Updated 10/02/21 @ 19:[address] Marita Jordan MD) household members: significant other Smoking Status: Current every day smoker tobacco type: cigarettes Smoking packs per day: 1 Smoking cigarettes per day: 20.0 alcohol intake: never substance use type: heroin and other details: Uses 1 gm heroin daily, snorts. Also, suboxone. ROS ROS Narrative Admission Review of Systems: CONSTITUTIONAL: No weight loss, fever, + chills, weakness or fatigue. HEENT: + Congestion, runny nose. Eyes: No visual loss, blurred vision, double vision or yellow sclerae. Ears, Nose, Throat: No hearing loss, sneezing or sore throat. SKIN: No rash or itching, lesions, wounds. CARDIOVASCULAR: No chest pain, chest pressure or chest discomfort, palpitations, edema, orthopnea, syncopal events. RESPIRATORY: + Wheezing, No shortness of breath, cough or sputum, hemoptysis. GASTROINTESTINAL: + Anorexia, nausea, abdominal cramping, No vomiting, diarrhea, melena, BRBPR. GENITOURINARY: No dysuria, frequency, urgency or retention. NEUROLOGICAL: No headache, dizziness, syncope, paralysis, ataxia, numbness or tingling in the extremities, focal weakness, change in bowel or bladder control, seizure. MUSCULOSKELETAL: + muscle, back pain, joint pain or stiffness. HEMATOLOGIC: No anemia, bleeding or bruising. LYMPHATICS: No enlarged nodes. No history of splenectomy. PSYCHIATRIC: + history of depression or anxiety. ENDOCRINOLOGIC: No reports of sweating, cold or heat intolerance. No polyuria or polydipsia. ALLERGIES: No history of asthma, hives, eczema or rhinitis. Vital Signs Vital Signs Vital Signs: 10/02/21 18:41 Temperature 96.8 F L Temperature Source Oral Pulse Rate 80 Respiratory Rate 18 Blood Pressure 120/76 Blood Pressure Mean 90 Pulse Ox 99 Oxygen Delivery Method Room Air Weight Weight: 181 lb 14.102 oz Body Mass Index (BMI) 32.2 Physical Exam Narrative Physical Examination: General: Awake, alert, oriented x 3 and cooperative, seated upright in the ED bed, mildly agitated and anxious, initially was not going to stay but following lengthy discussions amenable. Skin: Normal color, normal turgor, no icterus, no cyanosis. HEENT: AT/NC, EOMI, PERRLA, mildly dry MM, no carotid bruits or JVD noted. Lungs: Mildly diminished, greater bases, occasional end expiratory wheeze, coughing elicited with deep inspiratory effort, no rales or rhonchi Heart: Currently regular rate and rhythm; no gallop, rub audible. Abdomen: Soft, mild discomfort with general palpation but no rebound or guarding, no obvious distention, hyperactive bowel sounds, no HSM. Extremities: No cyanosis, clubbing, or edema. Neurological: Patient awake, alert, oriented as noted, cognitive function intact; pupils equally reactive to light and accommodation, cranial nerves II- XII grossly normal, moving all 4 extremities, no focal deficits, strength preserved, mildly agitated. Psychiatric: Affect appears mildly agitated, restless, no acute evidence of depressive or anxiety feelings. Assessment & Plan Assessment/Plan (1) Heroin withdrawal: PLAN: The patient is a 31 y/o F w/ PMHx: Anxiety and Depression/Bipolar disorder, Chronic migraines, Tobacco use, Polysubstance abuse including heroin who presents to the [facility] ED on 10/02/21 with history of significant ongoing issues with substance abuse primarily heroin which she snorts daily, usually using 1 g with her significant other with whom she lives, noting both have attempted to be clean but unfortunately its been unsuccessful several times with last dose 9 AM on day of presentation with complaint of opiate withdrawal. #1. Acute Opiate Withdrawal: Will admit to [facility], routine labs including CBC, CMP, urine for drug screen obtained and pending upon evaluation, will initiate and continue on protocol with tapering course of Subutex, as needed tylenol, ibuprofen, bowel regimen, gabapentin, Bentyl, Vistaril, methocarbamol, clonidine, PRN nightly trazodone for insomnia, IV fluids, IV antiemetics. Once patient clinically improved and completion of taper nearing will plan consultation with case management for transition to next level of rehabilitation care. #2. Polysubstance Abuse: Patient currently not candidate for hep C treatment currently as needs to be clean, sober x 6 months, documented attendance NA or AA meetings, counseling and ongoing negative drug screens. She does currently deny any IV drug abuse. Discussed at length that poor decisions are made when substance abuse is involved and patient is amenable to obtaining HIV and hepatitis panel. #3. Anxiety and Depression/Bipolar disorder: Current regimen only noting buspirone, not on appropriate regimen, likely contributing to substance use, will benefit from counseling and further psychiatric treatment. #4. Tobacco Abuse: Encouraged cessation, inpatient consultation per RT, NR if desired. #5. DVT prophylaxis: Low risk, encourage ambulation. Charges/Coding Visit Charges Inpatient E&M: 02507 Init Hosp L2
[2021-10-02 19:39] VITALS: BP 114/88; PULSE 74; RESP 17; TEMP 37.1; O2SAT 100
[2021-10-02 19:43] LABS: Absolute Lymphocyte Count 4.65 X10^3/uL (0.83-4.51); Absolute Neutrophil Count 5.9 X10^3/uL (2.0-7.7); Basophil# 0.08 X10^3/uL; Basophil% 0.7 % (0-1); Eosinophil# 0.34 X10^3/uL; Eosinophils% 2.9 % (0-5); Hematocrit 38.5 % (37-47); Hemoglobin 12.4 g/dL (12.0-15.0); Internal QC Validated? YES +Cl - CLEAR BKGD; Lymphocyte # 4.65 X10^3/ul (0.83-4.51); Lymphocyte % 40.1 % (19-41); Mean Corp Hgb Conc 32.2 g/dL (32-36); Mean Corpuscular Hgb 29.4 pg (27.0-32.0); Mean Corpuscular Volume 91.2 fL (81-99); Mean Platelet Vol. 10.7 fl (6.2-12.0); Monocyte# 0.61 X10^3/uL; Monocyte% 5.3 % (0-10); NRBC Flagged by Analyzer 0 % (0-5); Neutrophil # 5.88 X10^3/uL (2.7-7.7); Neutrophil % 50.7 % (47-70); Platelet Count 296 K/mm3 (150-450); RBC Distribution Width CV 13.1 % (11.6-14.6); RBC Distribution Width SD 43.8 fl (35.1-43.9); Red Blood Count 4.22 M/mm3 (4.2-5.4); White Blood Count 11.6 K/mm3 (4.4-11.0)
[2021-10-02 19:53] LABS: Pregnancy, Serum, hCG Quali. NEGATIVE Negative
[2021-10-02 20:02] VITALS: BP 112/77; PULSE 72; RESP 14; TEMP 37.1; O2SAT 100; BMI 31.8
[2021-10-02 20:03] LABS: ALB/GLOB Ratio 1.1 RATIO (0.9-2.4); AST(SGOT) 12 U/L (15-37); Alanine Aminotransfer ALT/SGPT 16 U/L (13-56); Albumin, Serum 3.8 g/dL (3.2-5.0); Alkaline Phosphatase 67 U/L (45-117); Anion Gap 3 (5-15); BUN 13 mg/dL (7-18); BUN/Creat Ratio 15.9 RATIO (10-20); Calcium,Total 8.9 mg/dL (8.5-10.1); Chloride 108 mmol/L (98-107); Creatinine, Serum 0.82 mg/dL (0.55-1.02); EST Glomerular Filtration Rate 87 mL/min (>60); Est Glom Filt Rate - Afr Amer 105 mL/min (>60); Estimated Creatinine Clearance 82.98 ml/min; Globulin 3.5 g/dL (2.2-4.2); Glucose 93 mg/dL (74-106); Protein, Total 7.3 g/dL (6.4-8.2); Sodium Level 138 mmol/L (136-145)
[2021-10-02 20:22] VITALS: RESP 14
[2021-10-02 22:24] VITALS: BP 102/65; PULSE 74; RESP 16; TEMP 36.7; O2SAT 99
[2021-10-02] MEDS: Gabapentin 800 MG Tablet PO (22:28)
[2021-10-02] MEDS: Dicyclomine 10 MG Capsule 20 MG PO (22:35)
[2021-10-02] MEDS: traZODone 100 MG Tablet PO (22:35)
[2021-10-02 22:36] LABS: Amphetamine Urine VISTA NEGATIVE (<1000 ng/mL); Barbiturate Urine VISTA NEGATIVE (< 200 ng/mL); Benzodiazepine Urine VISTA NEGATIVE (< 200 ng/mL); Cocaine Urine VISTA NEGATIVE (< 300 ng/mL); Ecstacy Urine VISTA NEGATIVE (< 500 ng/mL); Methadone Urine VISTA NEGATIVE (< 300 ng/mL); PCP Urine VISTA NEGATIVE (< 25 ng/mL); THC Urine VISTA NEGATIVE (< 50 ng/mL); Vista UDS pH Range 5
[2021-10-03 04:03] VITALS: BP 102/53; PULSE 71; RESP 16; TEMP 36.9; O2SAT 97
[2021-10-03 04:10] VITALS: RESP 16; O2SAT 99
[2021-10-03] MEDS: Dicyclomine 10 MG Capsule 20 MG PO ×2 (06:31→14:47)
[2021-10-03] MEDS: Gabapentin 800 MG Tablet PO ×2 (06:31→14:47)
[2021-10-03 09:14] LABS: HIV - WCH Non-Reactive (Nonreactive)
[2021-10-03 09:54] VITALS: BP 109/68; PULSE 81; RESP 18; TEMP 36.6; O2SAT 96
[2021-10-03 09:56] VITALS: RESP 16; O2SAT 99
[2021-10-03] MEDS: Buprenorphine HCl 2 MG TAB.SUBL 4 MG SL (10:03)
--- NOTE | 2021-10-03 10:48 | PN.HOSP_ITS ---
Subjective Subjective No issues overnight, Cina score of 0-1 Objective Data Objective Data Vital Signs: Vital Signs Temp Pulse Resp BP Pulse Ox 97.9 F 81 16 109/68 99 10/03/21 09:54 10/03/21 09:54 10/03/21 09:56 10/03/21 09:54 10/03/21 09:56 Oxygen Delivery Method Room Air Weight: 180 lb Body Mass Index (BMI) 31.8 Intake & Output: Intake and Output for Last 24 Hours 10/02/21 10/03/21 10/04/21 03:59 03:59 03:59 Intake Total 60 / 60 Balance 60 / 60 Lab / Micro Data Result Diagrams: 10/02/21 19:15 10/02/21 19:15 Labs: Laboratory Results - last 24 hr 10/02/21 19:15: WBC 11.6 H, RBC 4.22, Hgb 12.4, Hct 38.5, MCV 91.2, MCH 29.4, MCHC 32.2, RDW Std Deviation 43.8, RDW Coeff of Stew 13.1, Plt Count 296, MPV 10.7, Immature Gran % (Auto) 0.300, Neut % (Auto) 50.7, Lymph % (Auto) 40.1, [place] % (Auto) 5.3, Eos % (Auto) 2.9, Baso % (Auto) 0.7, Absolute Neuts (auto) 5.9, Absolute Lymphs (auto) 4.65 H, Nucleated RBC % 0 10/02/21 19:15: Sodium 138, Potassium 4.0, Chloride 108 H, Carbon Dioxide 27.0, Anion Gap 3 L, BUN 13, Creatinine 0.82, Estim Creat Clear Calc 82.98, Est GFR (MDRD) Af Amer 105, Est GFR (MDRD) Non-Af 87, BUN/Creatinine Ratio 15.9, Glucose 93, Calcium 8.9, Total Bilirubin 0.40, AST 12 L, ALT 16, Alkaline Phosphatase 67, Total Protein 7.3, Albumin 3.8, Globulin 3.5, Albumin/Globulin Ratio 1.1 10/02/21 19:15: Ethyl Alcohol 6.0 10/02/21 19:15: Serum , Qual NEGATIVE 10/02/21 21:45: Urine Opiates Screen NEGATIVE, Urine Methadone Screen NEGATIVE, Ur Barbiturates Screen NEGATIVE, Ur Phencyclidine Scrn NEGATIVE, Ur Amphetamines Screen NEGATIVE, MDMA (Ecstasy) Screen NEGATIVE, U Benzodiazepines Scrn NEG ATIVE, Urine Cocaine Screen NEGATIVE, U Cannabinoids Screen NEGATIVE, Ur Drug Screen Comment 10/03/21 06:09: HIV 1&2 Antibody Non-Reactive Physical Exam Const alert, oriented x3 and no apparent distress General Appearance: cooperative HEENT normocephalic and moist oral mucous membranes Eyes PERRL, EOMs intact bilaterally and conjunctivae normal Neck supple and no JVD Resp normal respiratory effort, no retractions, no use of accessory muscles and clear to auscultation bilaterally Auscultation: Negative for crackles, rales, rhonchi or wheezes Cardio regular rate, regular rhythm, S1 normal heart sound, S2 normal heart sound and no murmurs GI soft to palpation, non-tender and non-distended; Negative for hepatosplenomegaly Extremity no clubbing, cyanosis or edema Skin no rashes or lesions noted Neuro no focal motor deficits and no sensory deficits noted Psych affect normal Appearance: appropriate Assessment & Plan Assessment/Plan (1) Heroin withdrawal: PLAN: 1. Acute opiate withdrawal/polysubstance abuse/bipolar disorder/tobacco abuse ? We will continue with the opiate withdrawal protocol ? We will recommend outpatient follow-up with 180 ? Discussed tobacco cessation ? Hepatitis panel is pending ? She does not appear to be on any treatment for her bipolar disorder which is likely hindering her progress in terms of getting clean DVT: Ambulation Charges/Coding Visit Charges Inpatient E&M: 95031 Subs Hosp L2
--- NOTE | 2021-10-03 15:30 | NURSING ---
Pt signed AMA papers. This RN educated pt on benefits of staying.
[2021-10-03 15:31] VITALS: BP 131/79; PULSE 80; RESP 18; TEMP 37.3; O2SAT 99
[2021-10-05 08:10] LABS: HEPATITIS B SURFACE AG Negative (Negative); Hepatitis B Core Ab Total Negative (Negative); Hepatitis C Ab <0.1 s/co ratio (0.0-0.9)
[2021-10-05 10:28] LABS: Hep B Surface Antibodies Non Reactive (.)
== END 2021-10-03 17:00 | disposition left against medical advice (07) | DRG 770 ==
LOC: ED 19:24 → PCU 21:08
PROVIDERS: Admitting Provider Family Medicine; Emergency Provider Emergency Medicine; Visit Provider Family Medicine
DX: F11.23 Opioid dependence with withdrawal (principal); F19.10 Other psychoactive substance abuse, uncomplicated; F31.9 Bipolar disorder, unspecified; F17.210 Nicotine dependence, cigarettes, uncomplicated; G43.709 Chronic migraine without aura, not intractable, without status migrainosus; F41.9 Anxiety disorder, unspecified; Z79.899 Other long term (current) drug therapy
CPT/HCPCS: 36415; 80053; 80307; 82077; 84703; 85025; 86703; 86704; 86705; 86706; 86707; 86803; 87340; 87350; 97802; 99218; 99283; 99406; G0378